=== PATIENT | female | born 1940 | race Caucasian/White ===

== ENCOUNTER → 2018-08-06 | Outpatient (CLI) | payer OTHER ==
[~2018-08-06] VITALS: Ht 157.5 cm; Wt 47.6 kg
[~2018-08-06] MED LIST: BENTYL 10 MG CA10 MG PO; CELEBREX 200 M200 M1 PO; CITRACAL + D M1 EACH PO; ESTRACE2 MG PO; MAGOX 400400 MG PO; RIZATRIPTAN5 MG PO; UNICOMPLEX M TA1 TA1 PO; VITAMIN E400 UNIT PO; VITAMINC500 PO
--- NOTE | ~2018-08-06 | HPC ---
[facility] [place] [address] PAIN MANAGEMENT CONSULTATION Name: JULIA CORLEY Room #: REG [facility].#: [id number] Admission: 08/06/18 ������������������ Attend Phys: Misael Luque MD Discharge: ������������������ Date of : 36 Report #: [id number] THIS REPORT FOR: //name// CC: [facility] physician/PCP Julia Luque DATE OF SERVICE: 08/06/2018 CHIEF COMPLAINT: Low back pain across the lumbosacral segment with some radiation into the right leg following an L5-S1 distribution. The patient is a clem 77-year-old who is here today at the request of Julia Snyder APN, for epidural therapy. She has had pain since March of this year, which she describes as an aching soreness, especially when she is bending forward. The pain is 5/10 on the intensity scale. It radiates into the left leg from the buttock down the posterior thigh into the calf. This has not stopped her from remaining very active. She enjoys golf and has played 3 rounds of 18 holes this week! It should be noted that she is quite young in her appearance and leads an active lifestyle. She does have a history of osteoarthritis of the right hip and underwent total hip replacement in [address] at the age of [address] Marvin Bob performed a revision of that hip replacement a few years ago and she has done well. MEDICATIONS: Celebrex 200 mg daily, estradiol 2 mg daily, vitamins C and E, multivitamin, magnesium and Citracal, dicyclomine 10 mg t.i.d. and rizatriptan as needed for the onset of tension/migraine headaches. ALLERGIES: AMOXICILLIN. PAST MEDICAL HISTORY: Remarkable for arthritis and the joint issues described above. She has had a cholecystectomy in addition to her hip surgeries and hysterectomy in 1971. SOCIAL HISTORY: She is . Her is with her today. She denies use of tobacco, but enjoys alcohol in a social setting 2-3 times a week. REVIEW OF SYSTEMS: Positive for headaches, which are likely tension in nature, but have migrainous features. She has frequent urination and nocturia. PHYSICAL EXAMINATION: GENERAL: Again, this is a very young appearing 77 years old. VITAL SIGNS: Her blood pressure is 148/84, heart rate 74, respirations 16. [address] [address] PAIN MANAGEMENT CONSULTATION Name: CORLEYJULIA Shannan [id number] Admission: 08/06/18 ������������������ Attend Phys: Misael Luque MD Discharge: ������������������ Date of : 38 Report #: [id number] FUNCTION: She moves quickly and easily from sitting to standing position, ambulates without difficulty. Her gait is stable and she does not appear to be a fall risk. CHEST: Clear. CARDIAC: Rhythm is regular. MUSCULOSKELETAL: Examination of the spine reveals normal alignment. There is a palpable step-off at the L4-L5 level consistent with an anterolisthesis. Straight leg raising is mildly positive on the left in the L5-S1 distribution in both the sitting and supine position. Sensation and strength are within normal limits. Deep tendon reflexes are 2+ at knee and absent at the ankle bilaterally and symmetrical. IMAGING: MRI scan is reviewed and this confirms a grade 2 anterolisthesis of L4 on L5. This creates some spinal stenosis as well as neural foraminal narrowing. RECOMMENDATIONS: She has had one epidural injection at another clinic by Dr. Jean-Baptiste, which she said was painful during the performance and was not as helpful as she had hoped. I recommended that she repeat the injection today at our clinic. We will perform the injection at L4-L5 under fluoroscopic guidance, left paramedian approach. Potential risks and benefits were discussed. I discussed with her the role of the epidural and treatment. This is not a cure, it is a tool that can provide substantial pain relief for many patients for extended duration and if the procedure could be repeated periodically throughout the year, it would be an alternative to more aggressive treatments including surgery. Surgery for such an extensive anterolisthesis would likely require fusion, which she would very much like to avoid. We did discuss limiting her injections to no more than 3-4 per year due to her age and status. She would certainly be at some risk for increasing osteopenia and osteoporosis with extensive steroids. PROCEDURE: She was taken to fluoroscopic suite, placed prone, skin prepped with ChloraPrep. Skin anesthetized over the L4-L5 interspace, left of midline. A 20-gauge Tuohy epidural needle advanced, first attempt in the epidural space with loss of resistance. There was no blood or CSF aspirated. A 1 mL of Omnipaque injected. Good spread of dye observed in the epidural space, followed by 3 mL of 0.5% lidocaine mixed with 80 mg triamcinolone. She tolerated the procedure well and was observed for 45 minutes and discharged. Pain score is 0. Follow up as needed. I did not make routine appointment for her. We will see her back if she needs another injection. ��������������������������������������������� ���������������������������������������� By: ��������������������������������������������� 1813 [id number] Misael Luque MD /nt
[2018-08-06 15:25] VITALS: BP 148/84
--- NOTE | 2018-08-06 15:32 | NUR ---
Pain Clinic Assessment: 1. History of Osteoarthritis: SPINE HANDS HIP History of Rheumatoid Arthritis: Not Applicable 2. Height: 5 ft. 2 in. 157.5 cm. Weight: 105.0 lb. oz. 47.628 kg. Patient's BMI: 19.2 3. Vital Signs: BP: 148/84 Pulse: 74 Resp: 16 Temp: 02 Sat: 97 ECG Mon: 4. Pain Intensity: 5 5. Fall Risk: Dizziness: N Needs help standing or walking: N Fallen in the last 3 months: N Fall risk comments: 6. Patient on Blood Thinner: None 7. History of Hypertension: N 8. Opioid Therapy greater than 6 weeks: Opiate Contract Signed: 9. Risk Assessment Tool Provided: LOW-0 10. Functional Assessment Tool: 11. Recreational Drug Use: Never Drug Type: Tobacco Use: Former Smoker Tobacco Type: Amount or Packs/day: How Many Years: Alcohol Use: Yes Frequency: Weekly Quant: 2-3
== END | disposition home or self-care (01) ==
LOC: PAIN 07:03
DX: M43.16 Spondylolisthesis, lumbar region (principal); M48.061 Spinal stenosis, lumbar region without neurogenic claudication; M99.73 Connective tissue and disc stenosis of intervertebral foramina of lumbar region; M54.5 Low back pain; Z96.641 Presence of right artificial hip joint; Z79.899 Other long term (current) drug therapy; Z88.8 Allergy status to other drugs, medicaments and biological substances; Z90.49 Acquired absence of other specified parts of digestive tract; Z98.890 Other specified postprocedural states; Z87.891 Personal history of nicotine dependence

== ENCOUNTER → 2018-11-16 | Outpatient (CLI) | payer OTHER ==
[~2018-11-16] VITALS: Ht 157.5 cm; Wt 46.7 kg
[~2018-11-16] MED LIST changes: +AMITRIPTYLINE H10 M3 PO
[2018-11-16 09:33] VITALS: BP 153/83
--- NOTE | 2018-11-16 09:37 | NUR ---
Pain Clinic Assessment: 1. History of Osteoarthritis: SPINE HANDS HIP History of Rheumatoid Arthritis: Not Applicable 2. Height: 5 ft. 2 in. 157.5 cm. Weight: 103.0 lb. oz. 46.720 kg. Patient's BMI: 18.8 3. Vital Signs: BP: 153/83 Pulse: 72 Resp: 16 Temp: 02 Sat: 100 ECG Mon: 4. Pain Intensity: 5 5. Fall Risk: Dizziness: N Needs help standing or walking: N Fallen in the last 3 months: N Fall risk comments: 6. Patient on Blood Thinner: None 7. History of Hypertension: N 8. Opioid Therapy greater than 6 weeks: N Opiate Contract Signed: 9. Risk Assessment Tool Provided: LOW-0 10. Functional Assessment Tool: 11. Recreational Drug Use: Never Drug Type: Tobacco Use: Former Smoker Tobacco Type: Amount or Packs/day: How Many Years: Alcohol Use: Yes Frequency: Quant:
--- NOTE | 2018-11-19 08:38 | HPC ---
[facility] [place] [address] PAIN MANAGEMENT CONSULTATION Name: BURGESSEUGENIE C Room #: REG [facility].#: [id number] Admission: 11/16/18 ������������������ Attend Phys: Misael Luque MD Discharge: ������������������ Date of : 36 Report #: [id number] THIS REPORT FOR: //name// CC: [facility] physician/PCP Misael Luque DATE OF SERVICE: 11/16/2018 Followup visit for low back pain with radiation into the left leg. The patient returns to pain clinic today in followup. She has received an epidural injection in August. Response to the previous injection was favorable, although pain is now returning and now is into the left hip. She describes it as intermittent aching tenderness. She scores it as a 5/10, worse with prolonged sitting, walking and standing. She gets some relief when she lies down. She tries to remain active. She continues to do exercise on a regular basis. She has had hip replacement at a young age in 1989, at the age of 49. She had her first hip replacement. Dr. Marvin Bob performed an excellent replacement revision several years ago and she has done well since then, that was on the right. Her symptoms today are more on the left. She has seen a therapist and underwent traction 1 week ago. She feels that she is slightly worse since then. She has also had ultrasound, TENS, deep tissue therapy. She does daily exercises, walks and even played golf last Friday. She uses a rowing machine. PQRS REVIEW: 1. History of osteoarthritis of the spine with spondylosis problems involving hands and hips. 2. BMI is 18.8, longstanding for her. 3. Vital signs: Blood pressure 153/83. 4. Pain intensity 5/10. 5. She is not a fall risk. 6. She is on no blood thinners. 7. No history of hypertension. 8. She is not taking opioids. 9. She has completed an opioid risk tool score of 0. 10. Functional assessment score is 24/70 implying good management of chronic pain. 11. She denies use of recreational drugs, tobacco or alcohol in excess. She does have an occasional social alcoholic beverage. PHYSICAL EXAMINATION: VITAL SIGNS: As noted above. [facility] [address] [place] [address] PAIN MANAGEMENT CONSULTATION Name: EUGENIE CORLEY [facility] [id number] Admission: 11/16/18 ������������������ Attend Phys: Misael Luque MD Discharge: ������������������ Date of : 36 Report #: [id number] GENERAL: She is a very young appearing 78 year old. She moves easily from sitting to standing position. Her gait is antalgic. There is no focal weakness noted. There is a palpable step-off at the L4-L5 level consistent with an anterolisthesis grade 2. Straight leg raising is positive on the left in the L5 distribution both sitting and supine. Strength and sensation within normal limits. Deep tendon reflexes are brisk, 2-3+ knees, but absent at the ankles bilaterally. MRI is positive for grade 2 anterolisthesis of L4 on L5 with spinal stenosis at that level and neural foraminal narrowing as well. RECOMMENDATIONS: Repeat the epidural injection. She can continue to remain active. We can do this a few times a year. We discussed cortisone side effects. She was concerned. I think at no more than 3 to 4 epidural injections here. The alternative is much more favorable than the extensive surgery for her grade 2 anterolisthesis. She is in total agreement. PROCEDURE: Epidural injection under fluoroscopic guidance. PROCEDURE: She was taken to fluoroscopic suite, placed prone, skin prepped with ChloraPrep. Skin anesthetized to the left of midline at L4-L5. A 20-gauge Tuohy epidural needle advanced first attempt in the epidural space with loss of resistance technique. There was no blood or CSF aspirated. 0.25 mL demonstrated an excellent epidurogram. Spread with bilateral. It was then followed by 3 mL of 0.5% lidocaine mixed with 10 mg of triamcinolone. She tolerated the procedure well. There were no complications. She was taken to recovery room for observation. Pain score was basically unchanged in the recovery room at the time of discharge. A followup visit is planned in another month or two depending on the response and we will consider further treatments at that time. ��������������������������������������������� <ELECTRONICALLY SIGNED> ���������������������������������������� By: Misael Luque MD ��������������������������������������������� 11/19/18 [id number] Misael Luque MD /nt
== END | disposition home or self-care (01) ==
LOC: PAIN 06:53
DX: M54.16 Radiculopathy, lumbar region (principal); G89.29 Other chronic pain; M48.061 Spinal stenosis, lumbar region without neurogenic claudication; M43.16 Spondylolisthesis, lumbar region; M19.90 Unspecified osteoarthritis, unspecified site; Z96.641 Presence of right artificial hip joint; Z87.891 Personal history of nicotine dependence; Z88.8 Allergy status to other drugs, medicaments and biological substances; Z79.899 Other long term (current) drug therapy; Z98.890 Other specified postprocedural states

== ENCOUNTER → 2019-09-06 | Outpatient (CLI) | payer OTHER ==
[~2019-09-06] VITALS: Ht 157.5 cm; Wt 47.4 kg
--- NOTE | ~2019-09-06 | HPC ---
[facility] [address] [address] PAIN MANAGEMENT CONSULTATION Name: EUGENIE CORLEY [id number] Admission: 09/06/19 Attend Phys: Misael Luque MD Discharge: Date of : 38 Report #: [id number] THIS REPORT FOR: cc: FAM - No family physician/PCP MANSI - No family physician/PCP Misael Luque MD ~ CC: CONNIE Amado MD [facility] physician/PCP Vanita Luque DATE OF SERVICE: 09/06/2019 CHIEF COMPLAINT: Low back pain. I have seen the patient in the past for lumbar radiculopathy. She has had 2 epidural injections, the first with triamcinolone in 04/2018 was helpful, the second performed with dexamethasone in the exact location and in caused some increasing pain for the first couple of days and she did not feel that it was this helpful. We discussed dexamethasone and we have since transitioned back to triamcinolone because we felt that her clinical responses were inferior using dexamethasone compared to triamcinolone. I feel safe in doing so. We used biplanar fluoroscopic views and try and radiographic confirmation for each injection site. The pain today is scored at a 5/10. It fairly well localized over her left sacroiliac joint. She does have some broader pain across the lumbosacral segment, most likely related to grade 1-2 spondylolisthesis at L4-L5. We have discussed this at some length and we reviewed it today while looking at her MRI. Her pain is worse with prolonged standing and she finds that her feet will get numb at times in the L5 distribution, but this is very mechanical and if she shifts position, it will go away. She has a similar problem with her head and neck. When she sleeps on her back, which is more comfortable for her lower pelvis and her legs, her neck bothers her. She has had chronic neck aches, resulting in headaches and has tried multiple medications and therapies including Botox which she just recently underwent. It does sound as though these headaches are cervicogenic. She has never had plain film x-rays and they were ordered today. PQRS: Positive for osteoarthritis, spine, hands and hips. BMI is 19.1, blood pressure 138/79, heart rate 85, respirations 16, O2 sat 100, pain intensity 5/10. She needs no help standing or walking and has not fallen. She is on no blood thinners, no history of hypertension. She does not take medications for pain. She drinks alcohol socially, does not smoke. [address] [address] PAIN MANAGEMENT CONSULTATION Name: EUGENIE CORLEY [facility] [id number] Admission: 09/06/19 Attend Phys: Misael Luque MD Discharge: Date of : 38 Report #: [id number] PHYSICAL EXAMINATION: VITAL SIGNS: As noted above. She moves independently from sitting to standing position. She has good range of motion of her cervical spine with no increase in pain. No radiculopathy seen in the upper extremities. Examination of the lower lumbar segment reveals tenderness across the lumbar segment. She has a palpable step-off at the level of her spondylolisthesis. This pain is fairly broad, generalized. It is likely due to spondylitic changes and does not have a radicular component at this time. It should be noted that she did clearly have radiculopathy in the past. The most pressing finding today is localized pain over the sacroiliac joint on the left. This is locally tender and radiates somewhat into the hip, but no further. She has a positive a Hira's test. IMPRESSION: 1. Chronic intractable low back pain. Spondylitic changes related to grade 1-2 spondylolisthesis, likely facet arthropathy. She also has prominent sacroiliac joint pain on the left today. 2. Cervicogenic headaches. Plan: Cervical x-rays. Plain films ordered and I will review them. 2. Sacroiliac joint pain with sacroiliitis. 3. Chronic cervicogenic headaches. PLAN: Left sacroiliac joint injection under fluoroscopic guidance. PROCEDURE: She was taken to fluoroscopic suite, placed prone, skin prepped with ChloraPrep. Skin was anesthetized with 1% lidocaine and a 27-gauge needle was gently advanced through the posterior inferior capsule into the sacroiliac joint. A 0.25 mL of Omnipaque injected and an excellent arthrogram was achieved. This was followed by 2 mL of 0.25% bupivacaine mixed with 40 mg of triamcinolone. She tolerated the procedure well. Included in our lengthy consultation, which was about 30-40 minutes prior to injection, was a discussion about steroids and osteoporosis. Last year, she was found to be severely osteoporotic. We reviewed the role of steroids and exacerbating osteoporosis. A 40 mg of triamcinolone is 50% of her usual dose for epidural injection. If we use injections infrequently and only when absolutely necessary, I think they can perform safely. She is also currently on Fosamax. Followup visit planned in the pain clinic in 1-3 months. By: [id number] Misael Luque MD /nt
[2019-09-06 09:28] VITALS: BP 138/79
--- NOTE | 2019-09-06 09:45 | NUR ---
Pain Clinic Assessment: 1. History of Osteoarthritis: SPINE HANDS HIP History of Rheumatoid Arthritis: Not Applicable 2. Height: 5 ft. 2 in. 157.5 cm. Weight: 104.6 lb. oz. 47.446 kg. Patient's BMI: 19.1 3. Vital Signs: BP: 138/79 Pulse: 85 Resp: 16 Temp: 02 Sat: 100 ECG Mon: 4. Pain Intensity: 5 5. Fall Risk: Dizziness: N Needs help standing or walking: N Fallen in the last 3 months: N Fall risk comments: 6. Patient on Blood Thinner: None 7. History of Hypertension: N 8. Opioid Therapy greater than 6 weeks: N Opiate Contract Signed: 9. Risk Assessment Tool Provided: LOW-0 10. Functional Assessment Tool: 11. Recreational Drug Use: Never Drug Type: Tobacco Use: Former Smoker Tobacco Type: Amount or Packs/day: How Many Years: Alcohol Use: Yes Frequency: Quant:
== END | disposition home or self-care (01) ==
LOC: PAIN 06:48
PROVIDERS: ATTEND Anesthesiology Pain Medicine
DX: M53.3 Sacrococcygeal disorders, not elsewhere classified (principal); G89.29 Other chronic pain; M47.896 Other spondylosis, lumbar region; M43.16 Spondylolisthesis, lumbar region; G44.89 Other headache syndrome; M19.90 Unspecified osteoarthritis, unspecified site; Z98.890 Other specified postprocedural states; Z79.899 Other long term (current) drug therapy; Z87.891 Personal history of nicotine dependence

== ENCOUNTER → 2021-02-05 | Outpatient (CLI) | payer OTHER | LOC: SJCVCIMAG 10:01 → SJCVC 10:01 | PROVIDERS: ATTEND Internal Medicine Cardiovascular Disease | DX: I08.1 Rheumatic disorders of both mitral and tricuspid valves (principal); E78.5 Hyperlipidemia, unspecified; R53.83 Other fatigue; R06.00 Dyspnea, unspecified; I10 Essential (primary) hypertension; E78.00 Pure hypercholesterolemia, unspecified; F41.9 Anxiety disorder, unspecified; M54.9 Dorsalgia, unspecified; G89.29 Other chronic pain; K57.90 Diverticulosis of intestine, part unspecified, without perforation or abscess without bleeding; B00.9 Herpesviral infection, unspecified; K21.9 Gastro-esophageal reflux disease without esophagitis; M54.16 Radiculopathy, lumbar region; G47.33 Obstructive sleep apnea (adult) (pediatric); C80.1 Malignant (primary) neoplasm, unspecified; Z87.891 Personal history of nicotine dependence; Z72.89 Other problems related to lifestyle; Z79.899 Other long term (current) drug therapy; Z88.1 Allergy status to other antibiotic agents; Z88.8 Allergy status to other drugs, medicaments and biological substances ==